=== PATIENT | male | born 1975 | race Caucasian/White ===

== ENCOUNTER 2016-09-26 22:19 | Emergency (ER) | payer MEDICARE, OTHER ==
[~2016-09-26] VITALS: Ht 182.9 cm; Wt 129.1 kg
[2016-09-26 22:25] VITALS: BP 158/92; PULSE 105; RESP 20; TEMP 98.4; O2SAT 95
[2016-09-26] MEDS ORDERED: GABA800T PO (23:04)
[2016-09-26] MEDS ORDERED: PRIL20CA9 PO (23:04)
[2016-09-26] MEDS ORDERED: METO25TA6 PO (23:04)
[2016-09-26] MEDS ORDERED: LITH300T PO (23:04)
[2016-09-26] MEDS ORDERED: CITA40TA4 PO (23:04)
[2016-09-26] MEDS ORDERED: ZYPR15TA PO (23:04)
[2016-09-26] MEDS ORDERED: SERO50TA PO (23:04)
[2016-09-26] MEDS ORDERED: OXCA300T PO (23:04)
[2016-09-26] MEDS ORDERED: KETOROLAC TROMETHAMINE 60 MG/2 ML (IM) VIAL IM ONE (23:45)
[2016-09-26] MEDS ORDERED: DEXAMETHASONE SOD PHOS 4 MG/ML VIAL IM ONE (23:45)
[2016-09-26] MEDS ORDERED: PRED20 PO (23:47)
[2016-09-26] MEDS ORDERED: AUGM875T PO (23:47)
--- NOTE | 2016-09-26 23:48 | PD ---
HPI Chief Complaint: Pain: Acute or Chronic Time Seen by Provider: 23:34 Travel History International Travel<30 days: No Contact w/Intl Traveler<30days: No Traveled to known affect area: No History of Present Illness HPI 40-year-old male complains of neck pain with radiation to left shoulder and left arm. Patient has history of chronic neck pain status post neck surgery in the past. Patient states that she started having increasing neck pain with radiation to left shoulder and left arm for the last 4 days. Patient denies any recent injury. Patient denies any focal weakness and numbness of extremity. Patient also complained of pressure pain behind the left eye but past few days. Patient status post left eye surgery recently. Patient was seen by project archivist and was advised that could be sinusitis. Patient denies any fever chills. Patient denies any nasal congestion. Patient denies any neck stiffness. PFSH Past Medical History Cardiovascular Problems: Yes (HTN) Hypertension: Yes Tetanus Vaccination: < 5 Years Influenza Vaccination: Yes Past Surgical History Abdominal Surgery: Yes (hernia) Appendectomy: Yes Cholecystectomy: Yes Thoracic Surgery: Yes Other Surgery: Yes (r achilies tendon) Social History Alcohol Use: No Tobacco Use: Yes Substance Use: No Allergies-Medications (Allergen,Severity, Reaction): Coded Allergies: No Known Allergies (Unverified , 09/26/16) Reported Meds & Prescriptions Reported Meds & Active Scripts Active Reported Metoprolol Succinate ER 24 HR (Metoprolol Succinate) 25 Mg Tab 25 Mg PO DAILY Seroquel (Quetiapine Fumarate) 50 Mg Tab 50 Mg PO BID Zyprexa (Olanzapine) 15 Mg Tab 15 Mg PO DAILY Prilosec (Omeprazole) 20 Mg Cap 20 Mg PO DAILY Gabapentin 800 Mg Tab 800 Mg PO TID Oxcarbazepine 300 Mg Tab 300 Mg PO DAILY [place] Carbonate ER ([place] Carbonate) 300 Mg Tab 300 Mg PO BID Citalopram (Citalopram Hydrobromide) 40 Mg Tab 40 Mg PO DAILY Review of Systems General / Constitutional: No: Fever Eyes: No: Visual changes HENT: Positive: Neck Pain, No: Headaches Cardiovascular: No: Chest Pain or Discomfort Respiratory: No: Shortness of Breath Gastrointestinal: No: Abdominal Pain Genitourinary: No: Dysuria Musculoskeletal: No: Pain Skin: No Rash Neurologic: No: Weakness Psychiatric: No: Depression Endocrine: No: Polydipsia Hematologic/Lymphatic: No: Easy Bruising Physical Exam Narrative GENERAL: Well-nourished, well-developed patient. SKIN: Warm and dry. HEAD: Normocephalic. EYES: No scleral icterus. No injection or drainage. Patient has no tenderness on palpation frontal or maxillary sinuses sinus area. NECK: Supple, trachea midline. No JVD or lymphadenopathy. Moderate tenderness on palpation paraspinal areas cervical spine. No meningismus. CARDIOVASCULAR: Regular rate and rhythm without murmurs, gallops, or rubs. RESPIRATORY: Breath sounds equal bilaterally. No accessory muscle use. GASTROINTESTINAL: Abdomen soft, non-tender, nondistended. MUSCULOSKELETAL: No cyanosis, or edema. BACK: Nontender without obvious deformity. No CVA tenderness. Neurologic exam normal. Data Data Last Documented VS Vital Signs Date Time Temp Pulse Resp B/P Pulse Ox O2 Delivery O2 Flow Rate FiO2 09/26/16 22:25 98.4 105 20 158/92 95 Orders Dexamethasone Inj (Decadron Inj) (09/26/16 23:45) Ketorolac Inj (Toradol Inj) (09/26/16 23:45) MDM Medical Decision Making Medical Screen Exam Complete: Yes Emergency Medical Condition: Yes Differential Diagnosis Differential diagnosis including radiculopathy, fracture, HNP. Narrative Course 40-year-old male with increasing neck pain, with radiation to left shoulder and left arm. History of chronic neck pain status post neck surgery in the past. Decadron 8 mg IM. Toradol 60 mg IM. Diagnosis Primary Impression: Cervical radiculopathy Patient Instructions: General Instructions Additional Instructions: Take medications as directed. Follow-up with personal physician. Return if worse. Med/Other Pt SpecificInfo: Prescription(s) given Scripts Amoxicillin-Clavulanate (Augmentin)875-125 mg [id number] Mg PO BID #20 TAB not for use in CrCl <30 ml/min. Prov:Dany Montemayor MD 09/26/16 Prednisone 20 Mg Tab20 Mg PO DAILY #10 TAB Prov:Dany Montemayor MD 09/26/16 Disposition: 01 DISCHARGE HOME Condition: Stable Dany Montemayor MD Sep 26, 2016 23:47
[2016-09-27 00:45] VITALS: BP 159/86
== END 2016-09-27 00:45 | disposition home or self-care (01) ==
LOC: PHEFT 22:19
DX: M54.12 Radiculopathy, cervical region (principal); I10 Essential (primary) hypertension; G89.29 Other chronic pain; Z72.0 Tobacco use
CPT/HCPCS: 96372; 99283; J1100; J1885

== ENCOUNTER 2016-12-16 12:15 | Emergency (ER) | payer MEDICARE, OTHER ==
[~2016-12-16] VITALS: Ht 182.9 cm; Wt 129.6 kg
[~2016-12-16 12:15] MED LIST: AUGM875T PO; CITA40TA4 PO; GABA800T PO; LITH300T PO; METO25TA6 PO; OXCA300T PO; PRED20 PO; PRIL20CA9 PO; SERO50TA PO; ZYPR15TA PO
[2016-12-16 12:23] VITALS: BP 151/99; PULSE 75; RESP 18; TEMP 97.9; O2SAT 96
[2016-12-16] MEDS ORDERED: XANA2TAB2 PO (12:37)
[2016-12-16] MEDS ORDERED: CYCL1TAB29 PO (12:47)
[2016-12-16] MEDS ORDERED: HYDR-3533 PO (12:47)
--- NOTE | 2016-12-16 12:48 | PD ---
HPI Chief Complaint: Back/ Neck Pain or Injury Time Seen by Provider: 12:47 Travel History International Travel<30 days: No Contact w/Intl Traveler<30days: No Traveled to known affect area: No History of Present Illness HPI 41-year-old male with history of hypertension presents to the emergency department for evaluation of lower back pain radiating to his right leg for 2 days. The patient states that he has a history of low back pain and has had 2 previous surgeries including a spinal fusion with hardware in place. States that his last surgery was 4 years ago. States that over the past 2 days he's had pain in his lower back with shooting pain radiating down his right leg to his knee. He denies any injury or trauma to his back. States that he did have a car ride for several hours 2 days ago and thinks that this may have aggravated his back. Denies any alleviating factors. He has been taking ibuprofen with minimal improvement of symptoms. He denies any fever, chills, nausea, vomiting, numbness or tingling, weakness, saddle anesthesia, bowel or bladder incontinence. No other complaints. PFSH Past Medical History ADHD: Yes Bipolar Disorder: Yes Cardiovascular Problems: Yes (HTN) Hypertension: Yes Tetanus Vaccination: > 5 Years Influenza Vaccination: Yes Past Surgical History Abdominal Surgery: Yes (hernia) Appendectomy: Yes Cholecystectomy: Yes Thoracic Surgery: Yes Other Surgery: Yes (r achilies tendon) Social History Alcohol Use: No Tobacco Use: Yes Substance Use: No Allergies-Medications (Allergen,Severity, Reaction): Coded Allergies: No Known Allergies (Unverified , 12/16/16) Reported Meds & Prescriptions Reported Meds & Active Scripts Active Flexeril (Cyclobenzaprine HCl) 10 Mg Tab 10 Mg PO TID 5 Days Lortab (Hydrocodone-Acetaminophen) 5-325 Mg Tab 1 Tab PO Q6H PRN Reported Xanax (Alprazolam) 2 Mg Tab 2 Mg PO Q8H PRN Metoprolol Succinate ER 24 HR (Metoprolol Succinate) 25 Mg Tab 25 Mg PO DAILY Seroquel (Quetiapine Fumarate) 50 Mg Tab 50 Mg PO BID Zyprexa (Olanzapine) 15 Mg Tab 15 Mg PO DAILY Prilosec (Omeprazole) 20 Mg Cap 20 Mg PO DAILY Gabapentin 800 Mg Tab 800 Mg PO TID Oxcarbazepine 300 Mg Tab 300 Mg PO DAILY [place] Carbonate ER ([place] Carbonate) 300 Mg Tab 300 Mg PO BID Citalopram (Citalopram Hydrobromide) 40 Mg Tab 40 Mg PO DAILY Review of Systems Except as stated in HPI: all other systems reviewed are Neg Physical Exam Narrative GENERAL: Well-nourished and well-developed male patient in no acute distress who is nontoxic appearing. SKIN: Warm and dry. HEAD: Normocephalic and atraumatic. EYES: No injection, drainage, or hyphema noted. PERRLA. EOMI. ENT: No nasal drainage noted. Oropharynx is clear. NECK: Supple and the trachea is midline. CARDIOVASCULAR: Regular rate and rhythm. RESPIRATORY: Breath sounds are equal bilaterally with no accessory muscle use, wheezing, rhonchi, or crackles. GASTROINTESTINAL: Abdomen is soft, non-tender, and nondistended. MUSCULOSKELETAL: No obvious deformities, swelling, cyanosis, or ecchymosis is present throughout the upper and lower extremities. Patient has full range of motion without any signs of neurovascular compromise. Strength 5/5 upper and lower extremities equal bilaterally. Right SLR positive. BACK: Surgical scar overlying the lumbar spine noted. Tenderness to palpation of right lumbar paraspinal muscles. No obvious deformities, bony point tenderness, or crepitus noted throughout the thoracic and lumbar vertebrae. NEUROLOGICAL: Awake, alert, and oriented. Normal speech and gait. Cranial nerves are grossly intact. Data Data Last Documented VS Vital Signs Date Time Temp Pulse Resp B/P Pulse Ox O2 Delivery O2 Flow Rate FiO2 12/16/16 12:23 97.9 75 18 151/99 96 MDM Medical Decision Making Medical Screen Exam Complete: Yes Emergency Medical Condition: Yes Differential Diagnosis Lumbar radiculopathy versus sciatica versus discogenic pain versus herniated disc Narrative Course 41-year-old male presents to the emergency department for evaluation of lower back pain radiating to the right leg for 2 days. Patient is afebrile, vital signs are stable. He has a history of low back pain and has had 2 lumbar spine surgeries previously. No neurologic deficits. History and physical examination are consistent with acute on chronic low back pain with sciatica. He'll be prescribed pain medication and muscle relaxers. Advised to continue taking ibuprofen [id number]. He is instructed to follow-up with his PCP. Discussed signs and symptoms of when to return to the emergency department such as numbness or tingling, bowel or bladder incontinence, weakness. Patient verbalizes understanding and agreement with treatment plan. Diagnosis Primary Impression: Acute exacerbation of chronic low back pain Additional Impression: Sciatica of right side Referrals: Primary Care Physician Patient Instructions: Acute Low Back Pain (ED), General Instructions Additional Instructions: Perform gentle stretches. Apply ice or heat to help alleviate symptoms. Take medications as prescribed.Do not take these medications with alcohol or driving. Follow-up with your Primary Care Physician. Return to the ED for any acute worsening of symptoms. Med/Other Pt SpecificInfo: Prescription(s) given Scripts Cyclobenzaprine (Flexeril)10 Mg Tab10 Mg PO TID 5 Days Ref 0 Prov:Bon Hartman MD 12/16/16 Hydrocodone-Acetaminophen (Lortab)5-325 Mg Tab1 Tab PO Q6H PRN (PAIN GREATER THAN 6) #15 TAB Ref 0 Prov:Bon Hartman MD 12/16/16 Disposition: 01 DISCHARGE HOME Condition: Stable Radha Holm Dec 16, 2016 12:48
== END 2016-12-16 13:00 | disposition home or self-care (01) ==
LOC: PHEFT 12:15
DX: M54.5 Low back pain (principal); G89.29 Other chronic pain; M54.31 Sciatica, right side; I10 Essential (primary) hypertension; F17.210 Nicotine dependence, cigarettes, uncomplicated; Z98.1 Arthrodesis status
CPT/HCPCS: 99283

== ENCOUNTER 2016-12-28 11:58 | Emergency (ER) | payer MEDICARE, OTHER ==
[~2016-12-28] VITALS: Ht 182.9 cm; Wt 129.0 kg
[~2016-12-28 11:58] MED LIST changes: -AUGM875T PO; +CYCL1TAB29 PO; +HYDR-3533 PO; -PRED20 PO; +XANA2TAB2 PO
[2016-12-28 12:10] VITALS: BP 121/84; PULSE 76; RESP 16; TEMP 98.3; O2SAT 100
[2016-12-28] MEDS ORDERED: DEXAMETHASONE SOD PHOS 4 MG/ML VIAL IM ONE (12:45)
--- NOTE | 2016-12-28 12:46 | PD ---
HPI Chief Complaint: Back/ Neck Pain or Injury Time Seen by Provider: 12:45 Travel History International Travel<30 days: No Contact w/Intl Traveler<30days: No Traveled to known affect area: No History of Present Illness HPI 41-year-old male with a history of hypertension and chronic low back pain presents to the emergency department for evaluation of low back pain radiating to right leg for 2 weeks. Patient was seen by this provider 2 weeks ago in our ED for same complaint. He denies any traumatic injury to his lower back. He's had multiple spinal fusions in his low back several years ago. He has been taking Flexeril, Lortab and Tramadol for his pain with minimal relief of symptoms. He was seen by his PCP about 1 week ago and reports being told to come to ED for worsening of symptoms. He states he feels as though his lower back is weaker than it normally is and his pain is persistent. He denies fever , chills, nausea, vomiting, lower extremity weakness, saddle anesthesia, bowel or bladder incontinence. PCP Dr. Storey. No other complaints. PFSH Past Medical History ADHD: Yes Bipolar Disorder: Yes Cardiovascular Problems: Yes (HTN) Diminished Hearing: No Hypertension: Yes Tetanus Vaccination: Unknown Past Surgical History Abdominal Surgery: Yes (hernia) Appendectomy: Yes Cholecystectomy: Yes Thoracic Surgery: Yes Other Surgery: Yes (r achilies tendon) Social History Alcohol Use: No Tobacco Use: Yes Substance Use: No Allergies-Medications (Allergen,Severity, Reaction): Coded Allergies: No Known Allergies (Unverified , 12/28/16) Reported Meds & Prescriptions Reported Meds & Active Scripts Active Prednisone 20 Mg Tab 20 Mg PO BID 5 Days Flexeril (Cyclobenzaprine HCl) 10 Mg Tab 10 Mg PO TID 5 Days Lortab (Hydrocodone-Acetaminophen) 5-325 Mg Tab 1 Tab PO Q6H PRN Reported Xanax (Alprazolam) 2 Mg Tab 2 Mg PO Q8H PRN Metoprolol Succinate ER 24 HR (Metoprolol Succinate) 25 Mg Tab 25 Mg PO DAILY Seroquel (Quetiapine Fumarate) 50 Mg Tab 50 Mg PO BID Zyprexa (Olanzapine) 15 Mg Tab 15 Mg PO DAILY Prilosec (Omeprazole) 20 Mg Cap 20 Mg PO DAILY Gabapentin 800 Mg Tab 800 Mg PO TID Oxcarbazepine 300 Mg Tab 300 Mg PO DAILY [place] Carbonate ER ([place] Carbonate) 300 Mg Tab 300 Mg PO BID Citalopram (Citalopram Hydrobromide) 40 Mg Tab 40 Mg PO DAILY Review of Systems Except as stated in HPI: all other systems reviewed are Neg Physical Exam Narrative GENERAL: Well-nourished and well-developed pleasant male patient in no acute distress who is nontoxic appearing. SKIN: Warm and dry. HEAD: Normocephalic and atraumatic. EYES: No injection, drainage, or hyphema noted. PERRLA. EOMI. ENT: No nasal drainage noted. Oropharynx is clear. NECK: Supple and the trachea is midline. CARDIOVASCULAR: Regular rate and rhythm. RESPIRATORY: Breath sounds are equal bilaterally with no accessory muscle use, wheezing, rhonchi, or crackles. GASTROINTESTINAL: Abdomen is soft, non-tender, and nondistended. MUSCULOSKELETAL: No obvious deformities, swelling, cyanosis, or ecchymosis is present throughout the upper and lower extremities. Patient has full range of motion without any signs of neurovascular compromise. Strength 5/5 upper and lower extremities equal bilaterally. Right SLR positive. BACK: Surgical scar overlying the lumbar spine noted. Nontender without any obvious deformities, bony point tenderness, or crepitus noted throughout the thoracic and lumbar vertebrae. NEUROLOGICAL: Awake, alert, and oriented. Normal speech and gait. Cranial nerves are grossly intact. Data Data Last Documented VS Vital Signs Date Time Temp Pulse Resp B/P Pulse Ox O2 Delivery O2 Flow Rate FiO2 12/28/16 12:10 98.3 76 16 121/84 100 Orders Dexamethasone Inj (Decadron Inj) (12/28/16 12:45) [facility] Medical Decision Making Medical Screen Exam Complete: Yes Emergency Medical Condition: Yes Differential Diagnosis Acute on chronic lower back pain versus discogenic pain versus herniated disc versus DDD versus muscle spasm Narrative Course 41-year-old male presents to the ED for evaluation of lower back pain radiating to right leg for 2 week. Patient is afebrile, vital signs are stable. No traumatic injury. No neurologic deficits. He has a history of low back pain. He was seen here 2 weeks ago by this provider for same complaint. No red flag signs or symptoms. No emergent imaging is warranted at this time. He is given Decadron 8 mg IM and will be prescribed prednisone. He still has tramadol, lortab and flexeril at home for his pain. He is instructed to follow-up with his PCP. Patient verbalizes understanding and agreement with treatment plan. Diagnosis Primary Impression: Acute exacerbation of chronic low back pain Referrals: Primary Care Physician Patient Instructions: Acute Low Back Pain (ED), General Instructions Additional Instructions: Apply ice or heat to help alleviate symptoms. Take medication as prescribed with food and a full glass of water. Follow-up with your Primary Care Physician. Return to the ED for any acute worsening of symptoms. Med/Other Pt SpecificInfo: Prescription(s) given Scripts Prednisone 20 Mg Tab20 Mg PO BID 5 Days Ref 0 Prov:Debbie Georges MD 12/28/16 Disposition: 01 DISCHARGE HOME Condition: Stable Radha Holm Dec 28, 2016 12:46
[2016-12-28] MEDS ORDERED: PRED20 PO (12:47)
== END 2016-12-28 13:01 | disposition home or self-care (01) ==
LOC: PHEFT 11:58
DX: M54.5 Low back pain (principal); G89.29 Other chronic pain; M79.604 Pain in right leg; I10 Essential (primary) hypertension; Z98.1 Arthrodesis status; Z72.0 Tobacco use; Z86.59 Personal history of other mental and behavioral disorders; Z86.79 Personal history of other diseases of the circulatory system
CPT/HCPCS: 96372; 99283; J1100

== ENCOUNTER 2017-01-17 16:49 | Emergency (ER) | payer MEDICARE, OTHER ==
[~2017-01-17] VITALS: Ht 182.9 cm; Wt 130.0 kg
[~2017-01-17 16:49] MED LIST changes: +PRED20 PO
[2017-01-17 16:54] VITALS: BP 141/96; PULSE 94; RESP 15; TEMP 98; O2SAT 96
[2017-01-17] MEDS ORDERED: MORPHINE SULFATE 8 MG/ML INJ IV PUSH ONE (17:30)
--- NOTE | 2017-01-17 17:35 | PD ---
HPI Chief Complaint: Neuro Symptoms/ Deficits Time Seen by Provider: 17:09 Travel History International Travel<30 days: No Contact w/Intl Traveler<30days: No Traveled to known affect area: No History of Present Illness HPI 41yo M with PMH of chronic back pain with lumbar fusion was told to come to the ED after he urinated on himself twice today. Pt has had chronic back pain that radiates to right leg but for the last 2 days, pt has had difficulty lifting his right leg during walking. Today, he loss control of his bladder and urinated on himself. Pt states this has never happened before. Pt denies any trauma, fever, chest pain, sob, n/v, abdominal pain, IVDA. Pt has been here for acute on chronic back pain. Pt states he had surgery in [place] 8 years ago and had MRI after that. PFSH Past Medical History ADHD: Yes Bipolar Disorder: Yes Cardiovascular Problems: Yes (HTN) Diminished Hearing: No GERD: Yes Herniated Disk: Yes Hypertension: Yes Respiratory: Yes Immunizations Current: Yes Sleep Apnea: Yes Tetanus Vaccination: < 5 Years Influenza Vaccination: Yes Past Surgical History Abdominal Surgery: Yes (hernia) Appendectomy: Yes Cholecystectomy: Yes Eye Surgery: Yes ([employer]) Thoracic Surgery: Yes Tonsillectomy: Yes Tympanostomy Tube: Yes Other Surgery: Yes (r achilies tendon CARPAL TUNNEL CYST NECK) Social History Alcohol Use: No Tobacco Use: Yes (10) Substance Use: No Allergies-Medications (Allergen,Severity, Reaction): Coded Allergies: No Known Allergies (Unverified , 01/17/17) Reported Meds & Prescriptions Reported Meds & Active Scripts Active Percocet (Oxycodone-Acetaminophen) 5-325 mg Tab 1-2 Tab PO Q4H PRN Flexeril (Cyclobenzaprine HCl) 10 Mg Tab 10 Mg PO TID 5 Days Lortab (Hydrocodone-Acetaminophen) 5-325 Mg Tab 1 Tab PO Q6H PRN Reported Xanax (Alprazolam) 2 Mg Tab 1 Mg PO Q8H PRN Metoprolol Succinate ER 24 HR (Metoprolol Succinate) 25 Mg Tab 25 Mg PO BID Seroquel (Quetiapine Fumarate) 50 Mg Tab 50 Mg PO BID Zyprexa (Olanzapine) 15 Mg Tab 15 Mg PO DAILY Prilosec (Omeprazole) 20 Mg Cap 20 Mg PO BID Gabapentin 800 Mg Tab 800 Mg PO BID Oxcarbazepine 300 Mg Tab 450 Mg PO BID [place] Carbonate ER ([place] Carbonate) 300 Mg Tab 300 Mg PO BID Citalopram (Citalopram Hydrobromide) 40 Mg Tab 40 Mg PO DAILY Review of Systems Except as stated in HPI: all other systems reviewed are Neg Physical Exam Narrative GENERAL: 41yo M in moderate distress. SKIN: Focused skin assessment warm/dry. HEAD: Atraumatic. Normocephalic. CARDIOVASCULAR: Regular rate and rhythm. No murmur appreciated. RESPIRATORY: No accessory muscle use. Clear to auscultation. Breath sounds equal bilaterally. GASTROINTESTINAL: Abdomen soft, non-tender, nondistended. No rebound tenderness or guarding. BACK: +Midline lumbar surgical scar. +TTP L2-L3. No mass. MUSCULOSKELETAL: No obvious deformities. No clubbing. No cyanosis. No edema. DP2+ bilaterally. NEUROLOGICAL: Awake and alert. Sensation decreased from medial thigh in right leg down to his right foot. Decreased muscle strength on right. PSYCHIATRIC: Appropriate mood and affect; insight and judgment normal. Data Data Last Documented VS Vital Signs Date Time Temp Pulse Resp B/P Pulse Ox O2 Delivery O2 Flow Rate FiO2 01/17/17 22:47 78 20 154/90 96 01/17/17 21:30 Room Air 01/17/17 16:54 98.0 Orders Complete Blood Count With Diff (01/17/17 17:25) Basic Metabolic Panel (Bmp) (01/17/17 17:25) Prothrombin Time / Inr (Pt) (01/17/17 17:25) Act Partial Throm Time (Ptt) (01/17/17 17:25) Type And Screen (01/17/17 17:25) Morphine Inj (Morphine Inj) (01/17/17 17:30) Urinalysis - C+S If Indicated (01/17/17 17:50) Morphine Inj (Morphine Inj) (01/17/17 18:30) Lorazepam Inj (Ativan Inj) (01/17/17 20:15) Morphine Inj (Morphine Inj) (01/17/17 21:15) Mri L Spine W/O Contrast (01/17/17 ) Orphenadrine Inj (Norflex Inj) (01/17/17 22:00) Morphine Inj (Morphine Inj) (01/17/17 22:00) Labs Laboratory Tests Test 01/17/17 01/17/17 17:40 17:45 White Blood Count 9.6 TH/MM3 Red Blood Count 5.42 MIL/MM3 Hemoglobin 14.6 GM/DL Hematocrit 44.8 % Mean Corpuscular Volume 82.7 FL Mean Corpuscular Hemoglobin 26.9 PG Mean Corpuscular Hemoglobin 32.5 % Concent Red Cell Distribution Width 12.5 % Platelet Count 369 TH/MM3 Mean Platelet Volume 6.7 FL Neutrophils (%) (Auto) 56.9 % Lymphocytes (%) (Auto) 30.4 % Monocytes (%) (Auto) 7.8 % Eosinophils (%) (Auto) 4.4 % Basophils (%) (Auto) 0.5 % Neutrophils # (Auto) 5.6 TH/MM3 Lymphocytes # (Auto) 2.9 TH/MM3 Monocytes # (Auto) 0.7 TH/MM3 Eosinophils # (Auto) 0.4 TH/MM3 Basophils # (Auto) 0.0 TH/MM3 CBC Comment DIFF FINAL Differential Comment Prothrombin Time 10.0 SEC Prothromb Time International 0.9 RATIO Ratio Activated Partial 27.8 SEC Thromboplast Time Sodium Level 138 MEQ/L Potassium Level 4.0 MEQ/L Chloride Level 102 MEQ/L Carbon Dioxide Level 27.5 MEQ/L Anion Gap 9 MEQ/L Blood Urea Nitrogen 6 MG/DL Creatinine 1.10 MG/DL Estimat Glomerular Filtration 75 ML/MIN Rate Random Glucose 76 MG/DL Calcium Level 9.0 MG/DL Blood Type B POSITIVE Antibody Screen NEGATIVE Blood Bank Comment Urine Color YELLOW Urine Turbidity CLEAR Urine pH 6.0 Urine Specific [place] 1.008 Urine Protein NEG mg/dL Urine Glucose (UA) NEG mg/dL Urine Ketones NEG mg/dL Urine Occult Blood NEG Urine Nitrite NEG Urine Bilirubin NEG Urine Leukocyte Esterase NEG Urine WBC 0-2 /hpf Microscopic Urinalysis Comment CULT NOT INDICATED MDM Medical Decision Making Medical Screen Exam Complete: Yes Emergency Medical Condition: Yes Differential Diagnosis Cauda equina syndrome vs. nerve compression vs. myelopathy vs. chronic back pain Narrative Course 41yo M with new onset urinary incontinence and weakness in right leg for 2 days. Labs reviewed, no leukocytosis. BMP unremarkable. UA negative. Pt given morphine 6mg IV which helped with pain but pt is still complaining of a lot of pain so another 4mg of morphine IV ordered. MRI L spine ordered and sign out to next team to follow up. Diagnosis Primary Impression: Acute exacerbation of chronic low back pain Scripts Oxycodone-Acetaminophen (Percocet)5-325 mg Tab1-2 Tab PO Q4H PRN (PAIN) #5 TAB Ref 0 Prov:Maciej Armstrong MD 01/17/17 Eden Osborn DO January 17, 2017 17:35
[2017-01-17 17:55] LABS: AUTOMATED NEUTROPHIL # 5.6 TH/MM3 (1.8-7.7); BASOPHIL % 0.5 % (0.0-2.0); EOSINOPHIL # 0.4 TH/MM3 (0-0.4); EOSINOPHIL % 4.4 % (0.0-4.0); HEMATOCRIT 44.8 % (39.0-51.0); HEMO FLAGS DIFF FINAL; LYMPH % 30.4 % (9.0-44.0); LYMPHOCYTE # 2.9 TH/MM3 (1.0-4.8); MEAN CELL VOLUME 82.7 FL (80.0-100.0); MEAN CORPUSCULAR HEMOGLOBIN 26.9 PG (27.0-34.0); MEAN CORPUSCULAR HGB CONC 32.5 % (32.0-36.0); MONO % 7.8 % (0.0-8.0); NEUT % 56.9 % (16.0-70.0); PLATELET COUNT 369 TH/MM3 (150-450); RED BLOOD COUNT 5.42 MIL/MM3 (4.50-5.90); RED CELL DISTRIBUTION WIDTH 12.5 % (11.6-17.2); WHITE BLOOD COUNT 9.6 TH/MM3 (4.0-11.0)
[2017-01-17 17:59] LABS: BLOOD, URINE NEG (NEG); GLUCOSE,URINE NEG (NEG); KETONE, URINE NEG (NEG); NITRITE,URINE NEG (NEG)
[2017-01-17 18:07] LABS: BICARBONATE 27.5 MEQ/L (21.0-32.0)
[2017-01-17 18:09] LABS: APTT (PATIENT) 27.8 SEC (24.3-30.1); INTERNATIONAL NORMALIZED RATIO 0.9 RATIO
[2017-01-17 18:19] LABS: URINE COLOR YELLOW (YELLW/STRAW)
[2017-01-17 18:20] LABS: COMMENT (UR) CULT NOT INDICATED; CULTURE IF INDICATED CULT NOT INDICATED; WBC, URINE 0-2 /hpf (0-5)
[2017-01-17 18:24] VITALS: BP 148/89; PULSE 85; RESP 18; O2SAT 95
[2017-01-17] MEDS ORDERED: MORPHINE SULFATE 4 MG/ML INJ IV PUSH ONE ×3 (18:30→22:00)
[2017-01-17 19:04] VITALS: BP 139/74; PULSE 84; RESP 16; O2SAT 96
[2017-01-17] MEDS ORDERED: LORazepam 2 MG/ML VIAL IV PUSH ONE (20:15)
[2017-01-17 21:30] VITALS: BP 133/77; PULSE 78; RESP 17; O2SAT 97
--- NOTE | 2017-01-17 21:45 | RADHPO ---
EXAM DATE/TIME: 01/17/2017 20:43 [facility] COMPARISON: No previous studies available for comparison. INDICATIONS : Pain. Urinary incontinence. Numbness right leg. MEDICAL HISTORY : Hypertension. SURGICAL HISTORY : Tonsillectomy. Cholecystectomy. Fusion, lumbar. Cervical fusion. Carpal tunnel. Right knee surgery. ENCOUNTER: Initial ACUITY: 2 day PAIN SCORE: 10/10 LOCATION: back. TECHNIQUE: Multiplanar multisequence MRI of the lumbar spine was performed without contrast. FINDINGS: The most caudal appearing lumbar vertebra is numbered as L5. VERTEBRAE: Previous hardware fusion at the lumbosacral junction. No acute Schmorl node type endplate defects ant eriorly involving the inferior endplates of L1 and L2 area marrow signal is benign throughout. Alignm ent is satisfactory. CONUS: Normal level and configuration. T12-L1: The thecal sac has a normal diameter. No evidence of disc bulge or protrusion. The neural foramina are patent bilaterally. L1-L2: The thecal sac has a normal diameter. No evidence of disc bulge or protrusion. The neural foramina are patent bilaterally. L2-L3: The thecal sac has a normal diameter. No evidence of disc bulge or protrusion. The neural foramina are patent bilaterally. L3-L4: The thecal sac has a normal diameter. No evidence of disc bulge or protrusion. The neural foramina are patent bilaterally. L4-L5: Slight broad dorsal disc protrusion without significant associated canal or foraminal compromise. L5-S1: Fused level. Satisfactory canal and foramina. CONCLUSION: Previous lumbosacral fusion which appears satisfactory. Minimal broad disc protrusion at L4-5 without anatomic consequence. No explanation for urinary symptoms or radiculopathy Man Riley MD on January 17, 2017 at 21:39 Board Certified Radiologist. This report was verified electronically.
[2017-01-17] MEDS ORDERED: PERC5TAB12 PO (21:55)
--- NOTE | 2017-01-17 21:56 | PD ---
Physical Exam Time Seen by Provider: 21:[address] Osborn left this patient with me to check the MRI results and make a disposition. He states Lortab "does not work". Data Data Last Documented VS Vital Signs Date Time Temp Pulse Resp B/P Pulse Ox O2 Delivery O2 Flow Rate FiO2 01/17/17 19:04 84 16 139/74 96 Room Air 01/17/17 16:54 98.0 Orders Complete Blood Count With Diff (01/17/17 17:25) Basic Metabolic Panel (Bmp) (01/17/17 17:25) Prothrombin Time / Inr (Pt) (01/17/17 17:25) Act Partial Throm Time (Ptt) (01/17/17 17:25) Type And Screen (01/17/17 17:25) Morphine Inj (Morphine Inj) (01/17/17 17:30) Urinalysis - C+S If Indicated (01/17/17 17:50) Morphine Inj (Morphine Inj) (01/17/17 18:30) Lorazepam Inj (Ativan Inj) (01/17/17 20:15) Morphine Inj (Morphine Inj) (01/17/17 21:15) Mri L Spine W/O Contrast (01/17/17 ) Labs Laboratory Tests Test 01/17/17 01/17/17 17:40 17:45 White Blood Count 9.6 TH/MM3 Red Blood Count 5.42 MIL/MM3 Hemoglobin 14.6 GM/DL Hematocrit 44.8 % Mean Corpuscular Volume 82.7 FL Mean Corpuscular Hemoglobin 26.9 PG Mean Corpuscular Hemoglobin 32.5 % Concent Red Cell Distribution Width 12.5 % Platelet Count 369 TH/MM3 Mean Platelet Volume 6.7 FL Neutrophils (%) (Auto) 56.9 % Lymphocytes (%) (Auto) 30.4 % Monocytes (%) (Auto) 7.8 % Eosinophils (%) (Auto) 4.4 % Basophils (%) (Auto) 0.5 % Neutrophils # (Auto) 5.6 TH/MM3 Lymphocytes # (Auto) 2.9 TH/MM3 Monocytes # (Auto) 0.7 TH/MM3 Eosinophils # (Auto) 0.4 TH/MM3 Basophils # (Auto) 0.0 TH/MM3 CBC Comment DIFF FINAL Differential Comment Prothrombin Time 10.0 SEC Prothromb Time International 0.9 RATIO Ratio Activated Partial 27.8 SEC Thromboplast Time Sodium Level 138 MEQ/L Potassium Level 4.0 MEQ/L Chloride Level 102 MEQ/L Carbon Dioxide Level 27.5 MEQ/L Anion Gap 9 MEQ/L Blood Urea Nitrogen 6 MG/DL Creatinine 1.10 MG/DL Estimat Glomerular Filtration 75 ML/MIN Rate Random Glucose 76 MG/DL Calcium Level 9.0 MG/DL Blood Type B POSITIVE Antibody Screen NEGATIVE Blood Bank Comment Urine Color YELLOW Urine Turbidity CLEAR Urine pH 6.0 Urine Specific [place] 1.008 Urine Protein NEG mg/dL Urine Glucose (UA) NEG mg/dL Urine Ketones NEG mg/dL Urine Occult Blood NEG Urine Nitrite NEG Urine Bilirubin NEG Urine Leukocyte Esterase NEG Urine WBC 0-2 /hpf Microscopic Urinalysis Comment CULT NOT INDICATED MDM Medical Record Reviewed: Yes Supervised Visit with KELLY: Yes Interpretation(s) The MRI shows previous lumbosacral fusion which appears satisfactory. There is minimal broad disc protrusion at L4-5 without anatomic consequence. There is no explanation for his urinary symptoms or radiculopathy. Differential Diagnosis Herniated nucleus pulposus, cauda equina syndrome, lumbar pain etiology undetermined Narrative Course The MRI did not show the cause of the patient's radiculopathy. He states he will see a pain management doctor tomorrow and we will give him 5 Percocet 5 so that he can use these until he sees his pain management physician. Diagnosis Primary Impression: Acute exacerbation of chronic low back pain Additional Instruction: As we discussed, do not miss your appointment with the pain management physician tomorrow. Do not drink alcohol or drive on the Percocet 5. Med/Other Pt SpecificInfo: Prescription(s) given Scripts Oxycodone-Acetaminophen (Percocet)5-325 mg Tab1-2 Tab PO Q4H PRN (PAIN) #5 TAB Ref 0 Prov:Maciej Armstrong MD 01/17/17 Disposition: 01 DISCHARGE HOME Condition: Stable Maciej Armstrong MD January 17, 2017 21:55
[2017-01-17] MEDS ORDERED: ORPHENADRINE INJ 60 MG/2 ML AMP IM ONE (22:00)
[2017-01-17 22:15] VITALS: RESP 17
[2017-01-17 22:47] VITALS: BP 154/90
== END 2017-01-17 22:48 | disposition home or self-care (01) ==
LOC: PHED 16:49
DX: G89.29 Other chronic pain (principal); M54.5 Low back pain; R32 Unspecified urinary incontinence; M54.16 Radiculopathy, lumbar region; I10 Essential (primary) hypertension; F17.210 Nicotine dependence, cigarettes, uncomplicated; K21.9 Gastro-esophageal reflux disease without esophagitis; G47.30 Sleep apnea, unspecified; Z98.1 Arthrodesis status
CPT/HCPCS: 72148; 80048; 81001; 85025; 85610; 85730; 86850; 86900; 86901; 96372; 96374; 96375; 96376; 99284; J2060; J2270; J2360